=== PATIENT | male | born 1995 | race African-American/Black ===

== ENCOUNTER 2017-11-08 09:26 | Emergency (ER) | payer OTHER ==
[2017-11-08 09:34] VITALS: BMI 24.3
--- NOTE | 2017-11-08 10:23 | PDOC ---
History of Present Illness - General Chief Complaint: Pain Stated Complaint: ABD PAIN - History of Present Illness Initial Comments: 11/08/17 11:21 The patient is a 22 year old male with no past medical history who presents to the emergency department for evaluation of abdominal pain. The patient reports moderate abdominal pain after eating watermelon and [place] food last night. He describes the abdominal pain as diffuse, nonradiating, crampy, ranked 7/10 in severity, noting the pain is greater on the right side than the left. Pt states he went to the bathroom 20 minutes after eating the food and had 1 non bloody, formed bowel movement last night. The patient states he drank cranberry juice this morning with no problem. The pt reports pain was worse with bumps on the road. The patient denies use of antibiotics, recent travel, chest pain, shortness of breath, headache, and dizziness. Denies fever, chills, nausea, vomiting, urinary urgency/frequency, dysuria, and hematuria. Allergies: NKDA Social History: Admits to 1 drink 3 weeks ago. No reported cigarette or drug use. Surgical History: Denies. PCP: Dr. Vasquez ([phone]) Past History - Past Medical History Allergies/Adverse Reactions: Allergies Allergy/AdvReac Type Severity Reaction Status Date / Time No Known Allergies Allergy Verified 11/08/17 09:33 Home Medications: Ambulatory Orders NK [No Known Home Medication] 11/08/17 COPD: No Other medical history: denies - Immunization History Immunization Up to Date: Yes - Suicide/Smoking/Psychosocial Hx Smoking History: Never smoked Have you smoked in the past 12 months: No Information on smoking cessation initiated: No Hx Alcohol Use: Yes (social) Drug/Substance Use Hx: No Review of Systems - Review of Systems Comments:: 11/08/17 11:32 GENERAL/CONSTITUTIONAL: No fever or chills. No weakness. HEAD, EYES, EARS, NOSE AND THROAT: No change in vision. No ear pain or discharge. No sore throat. GASTROINTESTINAL: No nausea, vomiting, diarrhea or constipation. GENITOURINARY: No dysuria, frequency, or change in urination. CARDIOVASCULAR: No chest pain or shortness of breath. RESPIRATORY: No cough, wheezing, or hemoptysis. MUSCULOSKELETAL: (+)Abdominal pain. No neck or back pain. SKIN: No rash NEUROLOGIC: No headache, vertigo, loss of consciousness, or change in strength/ sensation. ENDOCRINE: No increased thirst. No abnormal weight change. HEMATOLOGIC/LYMPHATIC: No anemia, easy bleeding, or history of blood clots. ALLERGIC/IMMUNOLOGIC: No hives or skin allergy. *Physical Exam - Vital Signs Last Vital Signs Temp Pulse Resp BP Pulse Ox 99.0 F 93 H 20 133/82 99 11/08/17 09:30 11/08/17 09:30 11/08/17 09:30 11/08/17 09:30 11/08/17 09:30 - Physical Exam Comments: 11/08/17 11:33 GENERAL: Awake, alert, and fully oriented, in no acute distress HEAD: No signs of trauma EYES: PERRLA, EOMI, sclera anicteric, conjunctiva clear ENT: Auricles normal inspection, hearing grossly normal, nares patent, oropharynx clear without exudates. Moist mucosa NECK: Normal ROM, supple, no lymphadenopathy, JVD, or masses LUNGS: Breath sounds equal, clear to auscultation bilaterally. No wheezes, and no crackles HEART: Regular rate and rhythm, normal S1 and S2, no murmurs, rubs or gallops ABDOMEN: (+)Diffuse voluntary guarding w RLQ tenderness to palpation. (+)Unable to hop on right foot due to RLQ abdominal pain. No rebound. No CVAT EXTREMITIES: Normal range of motion, no edema. No clubbing or cyanosis. No cords , erythema, or tenderness BACK: No midline spinal tenderness in cervical/thoracic/lumbar region NEUROLOGICAL: Normal speech, cranial nerves intact, negative pronator drift, 5/ 5 strength in all 4 extremities, normal sensation to light touch in all 4 extremities, normal cerebellar exam, normal gait, normal reflexes and tone SKIN: Warm, Dry, normal turgor, no rashes or lesions noted. ED Treatment Course - LABORATORY CBC & Chemistry Diagram: 11/08/17 10:42 11/08/17 10:42 Medical Decision Making - Medical Decision Making 11/08/17 10:45 22yo M with no PMH or PSH presents to the ED with R sided abd pain since last night. Vitals wnl. Exam with voluntary guarding, RLQ ttp and peritoneal signs. DDx IBNLT appy vs cholecystitis vs gastroenteritis vs colitis. Plan -labs -UA -CTAP -pain meds, antiemetics -NPO -reassess 11/08/17 13:48 pt reports complete resolution of pain Mild white count with left shift remaining labs unremarkable UA neg CTAP negative for acute pathology Pt tolerating PO Requests DC home, requests work note. Provided for today I discussed the physical exam findings, ancillary test results and final diagnoses with the patient. I answered all of the patient's questions. The patient was satisfied with the care received and felt comfortable with the discharge plan and treatment plan. The patient will call their primary care physician within 24 hours to arrange follow-up and will return to the Emergency Department with any new, persistent or worsening symptoms. *DC/Admit/Observation/Transfer Diagnosis at time of Disposition: Abdominal pain - Discharge Dispostion Disposition: HOME Condition at time of disposition: Improved Decision to Admit order: No - Referrals Referrals: Roselyn Vasquez MD [Primary Care Provider] - - Patient Instructions Printed Discharge Instructions: DI for Abdominal Pain-Adult Additional Instructions: Follow-up with your primary care doctor within 2-3 days. Drink plenty of fluids and stay hydrated. Return to the emergency department if you have any new, worsening or concerning symptoms. - Post Discharge Activity Forms/Work/School Notes: Back to Work - Attestations Physician Attestion: 11/08/17 13:51 I, Dr. Pelon Acevedo MD, attest that this document has been prepared under my direction and personally reviewed by me in its entirety. I further attest, that it accurately reflects all work, treatment, procedures and medical decision -making performed by me.
[2017-11-08] MEDS ORDERED: FAMOTIDINE 20 MG/50 ML IVPB 20 MG/50 ML MG IVPB ONE (10:29)
[2017-11-08] MEDS ORDERED: MAG HYDROX/AL HYDROX/SIMETH 30 ML UNIT-DOSE CUP PO ONE (10:29)
[2017-11-08] MEDS ORDERED: ACETAMINOPHEN 1000 MG/100 ML VIAL (NON FORMULARY) IVPB ONE (10:29)
[2017-11-08] MEDS ORDERED: ACETAMINOPHEN INJECTION 100 ML IVPB ONE (10:32)
[2017-11-08] MEDS ORDERED: MAG HYDROX/AL HYDROX/SIMETH 30 ML UNIT-DOSE CUP ONE (10:32)
[2017-11-08 10:50] LABS: BASO % 0.2 % (0-2.0); EOS % 0.3 % (0-4.5); HEMATOCRIT 47.8 % (35.4-49); HEMOGLOBIN 15.5 GM/dL (11.7-16.9); LYMPH % 6.3 % (8-40); MCH 23.4 pg (25.7-33.7); MCHC 32.5 g/dl (32.0-35.9); MEAN CELL VOLUME 72.2 fl (80-96); MONO % 6.3 % (3.8-10.2); NEUT % 86.9 % (42.8-82.8); PLATELET COUNT 239 K/MM3 (134-434); RBC 6.63 M/mm3 (4.00-5.60); RDW 13.5 % (11.9-15.9); WHITE BLOOD COUNT 10.5 K/mm3 (4.0-10.0)
[2017-11-08 11:12] LABS: CHLORIDE 103 mmol/L (98-107); SODIUM 142 mmol/L (136-145)
[2017-11-08 11:24] LABS: URINE APPEARANCE CLEAR; URINE BILIRUBIN NEGATIVE (<2.0 mg/dL); URINE COLOR LTYELLOW; URINE GLUCOSE (UA) NEGATIVE (NEGATIVE); URINE KETONE NEGATIVE (NEGATIVE); URINE LEUK ESTERASE NEGATIVE (NEGATIVE); URINE NITRITE NEGATIVE (NEGATIVE); URINE PROTEIN NEGATIVE (NEGATIVE); URINE UROBILINOGEN NEGATIVE mg/dL (0.2-1.0)
[2017-11-08 11:40] LABS: ALBUMIN 4.6 g/dl (3.4-5.0); ALK PHOS 88 U/L (45-117); ANION GAP 11 (8-16); BILIRUBIN,TOTAL 0.7 mg/dL (0.2-1.0); BLOOD UREA NITROGEN 11 mg/dL (7-18); CALCIUM 9.5 mg/dL (8.5-10.1); CO2 28 mmol/L (21-32); CREATININE 1.2 mg/dL (0.7-1.3); GLUCOSE,RANDOM 114 mg/dL (74-106); LIPASE 89 U/L (73-393); SGOT/AST 100 U/L (15-37); SGPT/ALT 64 U/L (12-78)
[2017-11-08 13:39] VITALS: BP 109/59; PULSE 63; TEMP 98.8
== END 2017-11-08 14:01 | disposition home or self-care (01) ==
LOC: JER 09:26
PROC: 3E033NZ Introduction of Analgesics, Hypnotics, Sedatives into Peripheral Vein, Percutaneous Approach (ICD-10-PCS; principal; 2017-11-08)
DX: R10.9 Unspecified abdominal pain (principal)
CPT/HCPCS: 36415; 74177-TC; 80053; 81003; 83690; 85025; 99282-25; J0131

== ENCOUNTER 2021-12-11 17:24 | Emergency (ER) | payer SELFPAY ==
[2021-12-11 18:01] VITALS: BP 130/68; PULSE 68; RESP 18; TEMP 97.6; BMI 27.9
[2021-12-11] MEDS ORDERED: KETOROLAC TROMETHAMINE 30 MG/1 ML VIAL IM ONE (18:40)
[2021-12-11] MEDS ORDERED: KETOROLAC TROMETHAMINE 30 MG/1 ML VIAL ONE (18:42)
== END 2021-12-11 18:52 | disposition home or self-care (01) ==
LOC: JER 17:24 → JERFT 17:24
PROC: 3E0233Z Introduction of Anti-inflammatory into Muscle, Percutaneous Approach (ICD-10-PCS; principal; 2021-12-11)
DX: S49.92XA Unspecified injury of left shoulder and upper arm, initial encounter (principal)
CPT/HCPCS: 73030-TC-LT-FY; 99284-25